=== PATIENT | female | born 1985 | race Caucasian/White ===

== ENCOUNTER 2016-05-10 03:17 | Emergency (ER) | payer OTHER ==
[2016-05-10 03:38] VITALS: BP 115/74; PULSE 80; TEMP 97.8; BMI 38.7
--- NOTE | 2016-05-10 03:51 | PDOC ---
History of Present Illness - General History Source: Patient, Old Records Exam Limitations: No Limitations - History of Present Illness Initial Comments: 05/10/16 03:56 The patient is a 30 year old female with no significant past medical history, who presents to the emergency department today for further evaluation of throat pain. The patient describes her pain as constant, soreness. and burning. The patient reports associated pain and difficulty swallowing. She presents with her son who has similar symptoms. The patient denies fever, chills, and sweats. The patient denies nausea, vomiting, and diarrhea. The patient denies chest pain, cough, and shortness of breath. PAST MEDICAL HISTORY: No significant history reported PAST SURGICAL HISTORY: No significant history reported FAMILY HISTORY: No pertinent history reported SOCIAL HISTORY: None reported MEDICATIONS: Reviewed ALLERGIES: As per nursing notes <Alexander Savage - Last Filed: 05/10/16 03:55> <Anais Loyola - Last Filed: 05/11/16 15:28> - General Chief Complaint: Cold Symptoms Stated Complaint: COLD SYMPTOMS Time Seen by Provider: 05/10/16 03:33 Past History <Alexander Savage - Last Filed: 05/10/16 03:55> - Past Medical History Asthma: Yes Psychiatric Problems: Yes (ANXIETY) - Reproductive History (#): 3 Para: 2 Therapeutic (s) & number: No Spontaneous : 0 - Immunization History Immunization Up to Date: Yes - Psycho/Social/Smoking Cessation Hx Anxiety: No Suicidal Ideation: No Smoking History: Never smoked Have you smoked in the past 12 months: No Hx Alcohol Use: No Drug/Substance Use Hx: No Substance Use Type: None <Anais Loyola - Last Filed: 05/11/16 15:28> - Past Medical History Allergies/Adverse Reactions: Allergies Allergy/AdvReac Type Severity Reaction Status Date / Time No Known Allergies Allergy Verified 05/10/16 03:34 Home Medications: Ambulatory Orders Buspirone HCl [Buspar -] 10 mg PO DAILY 05/10/16 Lurasidone HCl [Latuda -] 40 mg PO DAILY 05/10/16 Zolpidem Tartrate [Ambien Cr] 12.5 mg PO HS PRN 05/10/16 Review of Systems - Review of Systems Able to Perform ROS?: Yes Comments:: 05/10/16 03:56 GENERAL/CONSTITUTIONAL: No fever or chills. No weakness. HEAD, EYES, EARS, NOSE AND THROAT:(+) Sore throat. Throat pain, difficulty swallowing. No change in vision. No ear pain or discharge. CARDIOVASCULAR: No chest pain or shortness of breath. RESPIRATORY: No cough, wheezing, or hemoptysis. GASTROINTESTINAL: No nausea, vomiting, diarrhea or constipation. GENITOURINARY: No dysuria, frequency, or change in urination. MUSCULOSKELETAL: No joint or muscle swelling or pain. No neck or back pain. SKIN: No rash NEUROLOGIC: No headache, vertigo, loss of consciousness, or change in strength/ sensation. ENDOCRINE: No increased thirst. No abnormal weight change. HEMATOLOGIC/LYMPHATIC: No anemia, easy bleeding, or history of blood clots. ALLERGIC/IMMUNOLOGIC: No hives or skin allergy. <Alexander Savage - Last Filed: 05/10/16 03:55> *Physical Exam - Vital Signs Last Vital Signs Temp Pulse Resp BP Pulse Ox 97.8 F 80 18 115/74 100 05/10/16 03:35 05/10/16 03:35 05/10/16 03:35 05/10/16 03:35 05/10/16 03:35 - Physical Exam Comments: 05/10/16 03:56 GENERAL: Awake, alert, and fully oriented, in no acute distress HEAD: No signs of trauma EYES: PERRLA, EOMI, sclera anicteric, conjunctiva clear ENT: Auricles normal inspection, hearing grossly normal, nares patent, oropharynx clear without exudates. Moist mucosa NECK: Normal ROM, supple, no lymphadenopathy, JVD, or masses LUNGS: Breath sounds equal, clear to auscultation bilaterally. No wheezes, and no crackles HEART: Regular rate and rhythm, normal S1 and S2, no murmurs, rubs or gallops ABDOMEN: Soft, nontender, normoactive bowel sounds. No guarding, no rebound. No masses EXTREMITIES: Normal range of motion, no edema. No clubbing or cyanosis. No cords, erythema, or tenderness NEUROLOGICAL: Cranial nerves II through XII grossly intact. Normal speech, normal gait SKIN: Warm, Dry, normal turgor, no rashes or lesions noted. <Alexander Savage - Last Filed: 05/10/16 03:55> - Vital Signs Last Vital Signs Temp Pulse Resp BP Pulse Ox 97.8 F 80 18 115/74 100 05/10/16 03:35 05/10/16 03:35 05/10/16 03:35 05/10/16 03:35 05/10/16 03:35 <Anais Loyola - Last Filed: 05/11/16 15:28> Medical Decision Making - Medical Decision Making 05/11/16 15:27 Pt comes with a throat infection. Her son has a strep throat. SHe has no fever and her rapid strep is negative. She will be sent home with OTC analgesia and rest; Diagnosis: viral URI. Her exam is normal in the ER. <Anais Loyola - Last Filed: 05/11/16 15:28> *DC/Admit/Observation/Transfer - Attestations Scribe Attestion: 05/10/16 03:56 Documentation prepared by Alexander Savage, acting as medical screener for Anais Loyola MD/DO. <Alexander Savage - Last Filed: 05/10/16 03:55> - Discharge Dispostion Admit: No <Anais Loyola - Last Filed: 05/11/16 15:28> Diagnosis at time of Disposition: Viral URI - Discharge Dispostion Disposition: HOME Condition at time of disposition: Stable - Referrals Referrals: Hailee Navarrete [Primary Care Provider] - - Patient Instructions Printed Discharge Instructions: DI for Viral Upper Respiratory Infection -- Adult
== END 2016-05-10 04:53 | disposition home or self-care (01) ==
LOC: JER 03:17
DX: J06.9 Acute upper respiratory infection, unspecified (principal); B97.89 Other viral agents as the cause of diseases classified elsewhere
CPT/HCPCS: 87070; 87430; 99281-25